=== PATIENT | female | born 1995 | race Native Hawaiian/Other Pacific Islander ===

== ENCOUNTER 2016-09-14 16:50 | Emergency (ER) | payer SELFPAY | END 2016-09-14 18:15 | disposition left against medical advice (07) | LOC: ED 16:50 | DX: R53.1 Weakness (principal); R42 Dizziness and giddiness; R11.10 Vomiting, unspecified; R68.83 Chills (without fever); Z53.21 Procedure and treatment not carried out due to patient leaving prior to being seen by health care provider ==

== ENCOUNTER 2016-12-21 19:31 | Emergency (ER) | payer SELFPAY ==
[2016-12-21 20:44] LABS: Basophils % (Auto) 0.3 % (0.0-1.8); Eosinophils % (Auto) 1.9 % (0.0-4.3); Hematocrit 37.8 % (30.3-42.9); Hemoglobin 12.9 gm/dl (10.1-14.3); Mean Corpuscular HGB Conc 34 % (30-34); Mean Corpuscular Hemoglobin 32 pg (28-32); Mean Corpuscular Volume 93 fl (79-97); Platelet Count 154 K/mm3 (140-440); Red Blood Count 4.08 M/mm3 (3.65-5.03); Red Cell Distribution Width 13.8 % (13.2-15.2); White Blood Count 5.5 K/mm3 (4.5-11.0)
[2016-12-21 22:43] LABS: Urine Drugs of Abuse Note Disclamer
[2016-12-21 23:09] LABS: Bacteria,Urine 1+ /HPF (Negative); Bilirubin,Urine NEG (Negative); Blood,Urine NEG (Negative); Ketones,Urine NEG (Negative); Leukocyte Esterase,Urine NEG (Negative); Mucus,Urine FEW /HPF; Nitrite,Urine NEG (Negative)
--- NOTE | 2016-12-21 23:27 | Emergency Department Report ---
ED Psych HPI - General Chief Complaint: Psych Stated Complaint: MH Time Seen by Provider: 12/21/16 23:13 Source: family, EMS Mode of arrival: Ambulatory - History of Present Illness Initial Comments: Gen. female with 4-5 months of auditory hallucinations. Patient states that she is hearing things that aren't there. She is not suicidal or homicidal. She does seem very anxious on my discussions with her. She denies any other complaints. Chills nausea vomiting. No medical plan and denies any drug abuse. According to the grandmother the patient has been speaking to herself for quite some time. MD Complaint: altered mental status -: Gradual, month(s) Associated Psychiatric Symptoms: auditory hallucinations Improves With: none Worsens With: none Context: not taking psychiatric Associated Symptoms: denies: confusion, headache, shortness of breath, nausea, vomiting, syncope, insomnia - Related Data Previous Rx's Medication Instructions Recorded Last Taken Type Cephalexin [Keflex] 500 mg PO Q12HR #10 cap 05/18/16 Unknown Rx Ibuprofen [Motrin] 600 mg PO Q8H PRN #21 tablet 05/18/16 Unknown Rx Neomy/Baci/Polymyx Oint [Triple 15 gm TP BID #1 oint 05/18/16 Unknown Rx Antibiotic] Allergies Allergy/AdvReac Type Severity Reaction Status Date / Time No Known Allergies Allergy Verified 12/21/16 19:41 ED Review of Systems ROS: Stated complaint: MH Other details as noted in HPI Comment: All other systems reviewed and negative Respiratory: denies: cough, orthopnea Cardiovascular: denies: chest pain, palpitations Neurological: denies: headache, weakness, numbness, paresthesias Psychiatric: anxiety, auditory hallucinations ED Past Medical Hx - Past Medical History Previous Medical History?: Yes - Surgical History Past Surgical History?: No - Family History Family history: no significant - Social History Smoking Status: Current Every Day Smoker Substance Use Type: Methamphetamines - Medications Home Medications: Home Medications Medication Instructions Recorded Confirmed Last Taken Type Cephalexin [Keflex] 500 mg PO Q12HR #10 cap 05/18/16 12/21/16 Unknown Rx Ibuprofen [Motrin] 600 mg PO Q8H PRN #21 tablet 05/18/16 12/21/16 Unknown Rx Neomy/Baci/Polymyx Oint [Triple 15 gm TP BID #1 oint 05/18/16 12/21/16 Unknown Rx Antibiotic] ED Physical Exam - General Limitations: No Limitations General appearance: alert, in no apparent distress, anxious - Head Head exam: Present: atraumatic, normocephalic - Eye Eye exam: Present: normal appearance. Absent: scleral icterus, conjunctival injection - ENT ENT exam: Present: mucous membranes moist - Neck Neck exam: Present: normal inspection - Respiratory Respiratory exam: Present: normal lung sounds bilaterally. Absent: respiratory distress - Cardiovascular Cardiovascular Exam: Present: regular rate, normal rhythm, normal heart sounds. Absent: systolic murmur, diastolic murmur, rubs, gallop - Extremities Exam Extremities exam: Present: normal inspection, full ROM. Absent: tenderness - Back Exam Back exam: Present: normal inspection - Neurological Exam Neurological exam: Present: alert, oriented X3 - Psychiatric Psychiatric exam: Present: normal affect, normal mood, agitated, anxious. Absent: homicidal ideation, suicidal ideation - Skin Skin exam: Present: warm, dry, intact, normal color. Absent: rash ED Course Vital Signs 12/21/16 19:39 Temperature 97.9 F Pulse Rate 94 H Respiratory 18 Rate Blood Pressure 104/71 O2 Sat by Pulse 100 Oximetry ED Medical Decision Making - Lab Data Result diagrams: 12/21/16 19:52 Laboratory Results - last 24 hr 12/21/16 12/21/16 12/21/16 19:52 19:52 19:52 WBC 5.5 RBC 4.08 Hgb 12.9 Hct 37.8 MCV 93 MCH 32 MCHC 34 RDW 13.8 Plt Count 154 Lymph % (Auto) 29.0 [place] % (Auto) 8.1 H Eos % (Auto) 1.9 Baso % (Auto) 0.3 Lymph # 1.6 [place] # 0.4 Eos # 0.1 Baso # 0.0 Seg Neutrophils % 60.7 Seg Neutrophils # 3.4 HCG, Qual Negative Urine Color Urine Turbidity Urine pH Ur Specific [place] Urine Protein Urine Glucose (UA) Urine Ketones Urine Blood Urine Nitrite Urine Bilirubin Urine Urobilinogen Ur Leukocyte Esterase Urine WBC (Auto) Urine RBC (Auto) U Epithel Cells (Auto) Urine Bacteria (Auto) Urine Mucus Urine Opiates Screen Urine Methadone Screen Ur Barbiturates Screen Ur Phencyclidine Scrn U Benzodiazepines Scrn Urine Cocaine Screen Plasma/Serum Alcohol < 0.01 12/21/16 12/21/16 Unknown Unknown WBC RBC Hgb Hct MCV MCH MCHC RDW Plt Count Lymph % (Auto) [place] % (Auto) Eos % (Auto) Baso % (Auto) Lymph # [place] # Eos # Baso # Seg Neutrophils % Seg Neutrophils # HCG, Qual Urine Color Yellow Urine Turbidity Clear Urine pH 6.0 Ur Specific [place] 1.029 Urine Protein 100 mg/dl Urine Glucose (UA) Neg Urine Ketones Neg Urine Blood Neg Urine Nitrite Neg Urine Bilirubin Neg Urine Urobilinogen 4.0 Ur Leukocyte Esterase Neg Urine WBC (Auto) 2.0 Urine RBC (Auto) 2.0 U Epithel Cells (Auto) 4.0 Urine Bacteria (Auto) 1+ Urine Mucus Few Urine Opiates Screen Presumptive negative Urine Methadone Screen Presumptive negative Ur Barbiturates Screen Presumptive negative Ur Phencyclidine Scrn Presumptive negative U Benzodiazepines Scrn Presumptive negative Urine Cocaine Screen Presumptive negative Plasma/Serum Alcohol - Medical Decision Making 21-year-old female here with complaint of confusion and agitation and hallucinations. According to grandmother sitting on 4-5 months. The patient is clearly agitated on my evaluation. When a 1013 her and have a psychiatric evaluation. Plan to medically clear her prior. This point all her labs and testing so far normal. Drug screen positive for marijuana and amphetamine. Plan to give the patient some Ativan given that she is agitated here in the emergency department. We'll await evaluation by psychiatry. Portions of this chart were dictated with dictation software. There may be dictation errors contained within this note. Critical care attestation.: If time is entered above; I have spent that time in minutes in the direct care of this critically ill patient, excluding procedure time. ED Disposition Clinical Impression: Auditory hallucination Disposition: [id number]/TX-[id number] ANOTHER TYPE HLTHCARE Is pt being admited?: No Condition: Stable Referrals: PRIMARY CARE, [Primary Care Provider] - 3-5 Days
[2016-12-22] MEDS ORDERED: ATIVAN PO ONE ×2 (00:15)
--- NOTE | 2016-12-22 11:23 | Consultation ---
History of Present Illness - Reason for Consult Consult date: 12/22/16 Reason for consult: Mental Health Evaluation Requesting physician: EMMA HOFFMANN - Chief Complaint Chief complaint: "I don't know what happened" - History of Present Psychiatric Illness 21 y.o. female presenting to [facility] for AH's. Today patient is calm and cooperative during the assessment. She stated experiencing AH's over the last couple of days. She cannot say what the voices were saying. She stated that she use recreational drugs often. She stated that her drugs of choice is "meth and weed." She stated that she was getting "high" recently. She denies sleep disturbance, a poor appetite, and being irritable. She stated that voices started after using "Meth." She denies SI/HI's and AVH's. She denies excessive alcohol consumption (etoh). UDS positive for amphetamines and marijuana. Medications and Allergies Allergies Allergy/AdvReac Type Severity Reaction Status Date / Time No Known Allergies Allergy Verified 12/21/16 19:41 Home Medications Medication Instructions Recorded Confirmed Last Taken Type Cephalexin [Keflex] 500 mg PO Q12HR #10 cap 05/18/16 12/21/16 Unknown Rx Ibuprofen [Motrin] 600 mg PO Q8H PRN #21 tablet 05/18/16 12/21/16 Unknown Rx Neomy/Baci/Polymyx Oint [Triple 15 gm TP BID #1 oint 05/18/16 12/21/16 Unknown Rx Antibiotic] Past psychiatric history - Past Medical History Past Medical History: No medical history Past Surgical History: No surgical history - past Psychiatric treatment and history psychiatric treatment history: Denies a psy hx and fam psy hx. - Social History Social history: lives with family (10th grade education) Mental Status Exam - Vital signs Last Vital Signs Temp 98.4 F 12/22/16 09:34 Pulse 97 H 12/22/16 09:34 Resp 18 12/22/16 09:36 BP 97/59 12/22/16 09:34 Pulse Ox 98 12/22/16 09:36 - Exam Narrative exam: MSE: Appearance: calm, cooperative Behavior: regular eye contact Speech: regular rate and tone Mood: "okay" Affect: congruent to mood Thought Process: circumstantial Thought Content: denies SI/HI's and AVH's Motor Activity: lying in bed Cognition: A/O x3 Insight: variable Judgment: variable Results Result Diagrams: 12/21/16 19:52 Abnormal lab results 12/21/16 Range/Units 19:52 [place] % (Auto) 8.1 H (0.0-7.3) % All other labs normal. Assessment and Plan Assessment and plan: Impression: Substance Induced Psychosis. Substance Use DO (amphetamines and marijuana). Today patient is calm and cooperative during the assessment. Positive for marijuana and amphetamines. DDx: R/O Bipolar, R/O Schizophrenia Recommendation/Plan: Continue 1013. Gather collateral to determine proper dispo. Discussed the importance to abstain from recreational drug use.
[2016-12-23 08:26] VITALS: BP 104/69
--- NOTE | 2016-12-23 11:04 | Progress Note ---
Subjective - Reason for Consult Consult date: 12/23/16 Reason for consult: Psychiatry Follow-up - Chief Complaint Chief complaint: "Hello" 21 y.o. female presenting to [facility] for AH's. Today patient is calm and cooperative during the assessment. Today patient is calm and cooperative during the assessment. She stated that she would like be discharged. She denies SI/HI' s and AVH's. Per collateral information from patient's grandmother Ellen Dillard [phone], she stated this was the patient's first episode of bizarre behavior. She stated that the patient does not have a mental health dx. The patient would like a referral for rehab services once discharged. Per the staff , no behavioral disturbances since her admission. Mental Status Exam - Vital signs Last Vital Signs Temp 97.8 F 12/23/16 08:25 Pulse 87 12/23/16 08:25 Resp 16 12/23/16 08:25 BP 104/69 12/23/16 08:25 Pulse Ox 99 12/23/16 08:25 - Exam Narrative exam: MSE: Appearance: calm, cooperative Behavior: regular eye contact Speech: regular rate and tone Mood: "okay" Affect: congruent to mood Thought Process: linear Thought Content: denies SI/HI's and AVH's Motor Activity: lying in bed Cognition: A/O x3 Insight: fair Judgment: fair Assessment and Plan Impression: Substance Induced Psychosis. Substance Use DO (amphetamines and marijuana). Today patient is calm and cooperative during the assessment. Positive for marijuana and amphetamines. Psychosis has resolved. Patient resides with her grandmother Ellen Dillard. DDx: R/O Bipolar, R/O Schizophrenia Recommendation/Plan: Rescind 1013. Patient given outpatient rehab services for [facility]. Discussed the importance to abstain from recreational drug use.
== END 2016-12-23 13:34 | disposition home or self-care (01) ==
LOC: EEVIPCON 19:31 → ED 19:31
DX: R44.0 Auditory hallucinations (principal); F17.210 Nicotine dependence, cigarettes, uncomplicated; F15.10 Other stimulant abuse, uncomplicated
CPT/HCPCS: 36415; 80307; 81001; 84703; 85025; 99284; G0480; 80320